=== PATIENT | male | born 1960 | race Caucasian/White ===

== ENCOUNTER 2016-12-07 16:34 | Emergency (ER) | payer MEDICAID, OTHER ==
[~2016-12-07] VITALS: Ht 182.9 cm; Wt 100.0 kg
[~2016-12-07 16:34] MED LIST: ALBU0.086 INH; ALBU1AER INH; LEVA750T9 PO; LEVE500 PO; PRED20 PO; VENTAER INH
[2016-12-07 16:37] VITALS: BP 142/85; PULSE 70; RESP 16; TEMP 98.4; O2SAT 95
[2016-12-07] MEDS ORDERED: ACETAMINOPHEN/HYDROcodone 325 MG/5 MG TAB PO ONE (17:15)
[2016-12-07] MEDS ORDERED: IBUP-232 PO (17:21)
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
== END 2016-12-07 18:27 | disposition home or self-care (01) ==
LOC: NEPD 16:34
DX: S16.1XXA Strain of muscle, fascia and tendon at neck level, initial encounter (principal); R20.2 Paresthesia of skin; J45.909 Unspecified asthma, uncomplicated; E78.00 Pure hypercholesterolemia, unspecified; J44.9 Chronic obstructive pulmonary disease, unspecified; R56.9 Unspecified convulsions; F17.210 Nicotine dependence, cigarettes, uncomplicated; V43.92XA Unspecified car occupant injured in collision with other type car in traffic accident, initial encounter; Z79.899 Other long term (current) drug therapy
CPT/HCPCS: 70450; 72125; 99285; L0120